=== PATIENT | female | born 1990 | race Caucasian/White ===

== ENCOUNTER 2019-05-12 14:27 | Outpatient (RCR) | payer OTHER | END 2019-05-15 | LOC: M PT 14:27 | PROVIDERS: ATTEND Nurse Practitioner Family | DX: M41.9 Scoliosis, unspecified (principal) ==

== ENCOUNTER 2019-06-11 13:41 | Outpatient (RCR) | payer OTHER | END 2019-06-14 | LOC: M PT 13:41 | PROVIDERS: ATTEND Nurse Practitioner Family | DX: M41.9 Scoliosis, unspecified (principal) ==

== ENCOUNTER 2019-06-30 14:22 | Outpatient (RCR) | payer OTHER | END 2019-07-15 | LOC: M PT 14:22 | PROVIDERS: ATTEND Nurse Practitioner Family | DX: M41.9 Scoliosis, unspecified (principal) ==

== ENCOUNTER → 2020-01-27 | Outpatient (CLI) | payer OTHER ==
--- NOTE | 2020-01-28 15:00 | REP ---
REASON: Atraumatic pain. FINDINGS: No acute fracture or destructive osseous lesion. Electronically Signed by Dorian Funes DO 01/28/2020 04:10 P
--- NOTE | 2020-01-28 15:02 | REP ---
ANKLE: REASON: Atraumatic pain. COMPARISON: No priors. FINDINGS: No acute fracture or destructive osseous lesion. The mortise is intact. Electronically Signed by Dorian Funes DO 01/28/2020 04:10 P
== END ==
LOC: M LRY 14:23
PROVIDERS: ATTEND Family Medicine
DX: M79.604 Pain in right leg (principal)

== ENCOUNTER → 2020-05-12 | Outpatient (CLI) | payer OTHER ==
--- NOTE | 2020-05-13 05:02 | REP ---
INDICATION: ABNORMAL XRAY OF LUNG COMPARISON: None. TECHNIQUE: PA and lateral. FINDINGS: The mediastinum and cardiac silhouette are normal. The lung go are clear and without acute consolidation, effusion, or pneumothorax. The skeletal structures are intact and normal. IMPRESSION: No acute cardiopulmonary process. <Electronically signed by Jayden Norris > 05/13/20 0425
== END ==
LOC: M RAD 13:03
PROVIDERS: ATTEND Nurse Practitioner Family
DX: R91.8 Other nonspecific abnormal finding of lung field (principal)